=== PATIENT | female | born 1995 | race Caucasian/White ===

== ENCOUNTER 2017-03-02 12:40 | Inpatient (IN) | payer OTHER ==
[~2017-03-02] VITALS: Ht 170.2 cm; Wt 64.0 kg
[2017-03-02] VITALS (17 sets, daily range): BP systolic 101–144; BP diastolic 66–92; PULSE 63–115; TEMP 97.9–98.3
[~2017-03-02 12:40] MED LIST: ALBUTEROL SULFAT3 M3; CEFTIN 250250 MG/TAB PO; RT ADVAIR 128 DISKUS
[2017-03-02 16:18] LABS: BASO % 0.3 % (0.0-2.0); EOS # 0.3 (0.0-0.7); EOS % 3.1 % (0-4.0); GRAN # 7.3 (1.4-6.5); GRAN % 69.5 % (42.2-75.2); HEMOGLOBIN 10.9 g/dl (12.5-16.0); LYMPH % 18.7 % (20.0-51.0); MEAN CELL VOLUME 84 fl (80.0-100.0); MEAN CORPUSCULAR HEMOGLOBIN 27 pg (27.0-31.0); MEAN CORPUSCULAR HGB CONC 32 g/dl (33.0-37.0); MEAN PLATELET VOLUME 12.6 fl (7.4-10.4); MONO # 0.8 (0.1-0.6); MONO % 7.4 % (1.7-9.3); PLATELET COUNT 153 K/mm3 (130-400); RED BLOOD COUNT 4.05 M/mm3 (4.10-5.30); REDCELL DISTRIBUTION WIDTH-CV 12.9 % (11.5-14.5); WHITE BLOOD COUNT 10.5 K/mm3 (4.8-10.8)
[2017-03-03 01:30] VITALS: BP 123/80; PULSE 90
[2017-03-03 05:30] VITALS: BP 111/50; PULSE 89
[2017-03-03 07:00] VITALS: BP 118/71; PULSE 89; TEMP 97.5
[2017-03-03 08:20] LABS: BASO % 0.2 % (0.0-2.0); EOS # 0.2 (0.0-0.7); EOS % 1.7 % (0-4.0); GRAN # 7.1 (1.4-6.5); GRAN % 75.3 % (42.2-75.2); LYMPH # 1.3 (1.2-3.4); LYMPH % 14.2 % (20.0-51.0); MEAN CELL VOLUME 87 fl (80.0-100.0); MEAN CORPUSCULAR HGB CONC 32 g/dl (33.0-37.0); MEAN PLATELET VOLUME 12.3 fl (7.4-10.4); MONO # 0.8 (0.1-0.6); PLATELET COUNT 114 K/mm3 (130-400); RED BLOOD COUNT 3.53 M/mm3 (4.10-5.30); WHITE BLOOD COUNT 9.4 K/mm3 (4.8-10.8)
[2017-03-03 08:26] LABS: HEMATOCRIT 30.6 % (37.0-47.0); HEMOGLOBIN 9.8 g/dl (12.5-16.0); MEAN CORPUSCULAR HEMOGLOBIN 28 pg (27.0-31.0)
[2017-03-03 12:20] VITALS: BP 108/75; PULSE 89; TEMP 98.6
[2017-03-03 16:52] VITALS: BP 120/75; PULSE 99; TEMP 98.1
[2017-03-03 20:45] VITALS: BP 131/83; PULSE 81; TEMP 99.5
[2017-03-04 08:25] VITALS: BP 100/52; PULSE 90; TEMP 98.1
[2017-03-04] MEDS ORDERED: NORCO 325 MG-51 TAB PO (09:19)
[2017-03-04 17:00] VITALS: BP 122/78; PULSE 101; TEMP 98.5
[2017-03-04 22:05] VITALS: BP 119/74; PULSE 89; TEMP 98.8
[2017-03-05 07:15] VITALS: BP 122/83; PULSE 82; TEMP 98
== END 2017-03-05 12:00 | disposition home or self-care (01) | DRG 765 ==
LOC: OB 12:40
PROVIDERS: Obstetrics & Gynecology
PROC: 10D00Z1 Extraction of Products of Conception, Low, Open Approach (ICD-10-PCS; principal; 2017-03-02)
DX: O32.1XX0 Maternal care for breech presentation, not applicable or unspecified (principal); O41.03X0 Oligohydramnios, third trimester, not applicable or unspecified; O36.5930 Maternal care for other known or suspected poor fetal growth, third trimester, not applicable or unspecified; Z3A.37 37 weeks gestation of pregnancy; Z37.0 Single live birth
CPT/HCPCS: J0690; J1885; J2175; J2270; J2370; J2405; J2590; J7120

== ENCOUNTER 2019-01-17 19:24 | Emergency (ER) | payer OTHER ==
[~2019-01-17] VITALS: Ht 167.6 cm; Wt 47.7 kg
[~2019-01-17 19:24] MED LIST changes: +NORCO 325 MG-51 TAB PO
[2019-01-17 19:28] VITALS: TEMP 98.8
[2019-01-17] MEDS ORDERED: SINGULAIR 110 MG/TAB PO (19:30)
[2019-01-17] MEDS ORDERED: RT ADVAIR 228 DISKUS IH (19:30)
[2019-01-17] MEDS ORDERED: LEXAPRO 5MG5 MG PO (19:30)
[2019-01-17 20:08] LABS: COLLECTION METHOD CLEAN CATCH
[2019-01-17 20:12] LABS: BASO % 0.2 % (0.0-2.0); EOS # 0.1 (0.0-0.7); EOS % 0.9 % (0-4.0); GRAN # 6.3 (1.4-6.5); GRAN % 72.5 % (42.2-75.2); HEMATOCRIT 37.4 % (37.0-47.0); HEMOGLOBIN 12.7 g/dl (12.5-16.0); LYMPH # 1.7 (1.2-3.4); LYMPH % 19.1 % (20.0-51.0); MEAN CELL VOLUME 85 fl (80.0-100.0); MEAN CORPUSCULAR HEMOGLOBIN 29 pg (27.0-31.0); MEAN CORPUSCULAR HGB CONC 34 g/dl (33.0-37.0); MEAN PLATELET VOLUME 11.4 fl (7.4-10.4); MONO # 0.6 (0.1-0.6); MONO % 6.8 % (1.7-9.3); PLATELET COUNT 171 K/mm3 (130-400); RED BLOOD COUNT 4.41 M/mm3 (4.10-5.30); REDCELL DISTRIBUTION WIDTH-CV 13.1 % (11.5-14.5)
[2019-01-17 20:15] LABS: MUCOUS Present /lpf; PH 6 (5-8); SQUAMOUS EPITHELIAL 0-2 /hpf; URINE APPEARANCE Clear; URINE BACTERIA None Seen /hpf; URINE BILIRUBIN Negative (NEGATIVE); URINE BLOOD Negative (NEGATIVE); URINE COLOR Yellow; URINE GLUCOSE Negative (NEGATIVE); URINE KETONE 2+ (NEGATIVE); URINE LEUKOCYTE ESTERASE Negative (NEGATIVE); URINE NITRATE Negative (NEGATIVE); URINE PROTEIN(semi-quant) Negative (NEGATIVE); URINE RBC 0-2 /hpf; URINE UROBILINOGEN Negative (NEGATIVE)
[2019-01-17 20:26] LABS: ALBUMIN 4.1 gm/dL (3.5-5.0); BILIRUBIN,TOTAL 0.7 mg/dL (0.0-1.0); CREATININE, serum 0.46 (0.52-1.25); POTASSIUM 3.6 mmol/L (3.4-5.0); TOTAL PROTEIN 7.3 gm/dL (6.4-8.2)
[2019-01-17 22:15] VITALS: BP 100/61; PULSE 80
== END 2019-01-17 22:15 | disposition home or self-care (01) ==
LOC: COL.ER 19:24
PROVIDERS: Physician Assistant
DX: O21.1 Hyperemesis gravidarum with metabolic disturbance (principal); O99.342 Other mental disorders complicating pregnancy, second trimester; F41.9 Anxiety disorder, unspecified; F32.9 Major depressive disorder, single episode, unspecified; Z98.890 Other specified postprocedural states; Z3A.14 14 weeks gestation of pregnancy; Z79.51 Long term (current) use of inhaled steroids
CPT/HCPCS: J1200; J2765; J7030

== ENCOUNTER 2019-07-12 20:40 | Outpatient (CLI) | payer OTHER ==
[~2019-07-12] VITALS: Ht 170.2 cm; Wt 69.5 kg
[~2019-07-12 20:40] MED LIST changes: +LEXAPRO 5MG5 MG PO; +RT ADVAIR 228 DISKUS IH; +SINGULAIR 110 MG/TAB PO
--- NOTE | 2019-07-12 20:50 | NUR ---
Here for labor check. . Wishes to . Livia for 1 hour. Membranes stripped in office today pt states.EFM on
[2019-07-12 21:00] VITALS: BP 130/79; PULSE 116; TEMP 98.2
[2019-07-12 21:14] VITALS: BP 130/79; PULSE 116; TEMP 98.2
[2019-07-12 21:20] VITALS: BP 130/79; PULSE 116; TEMP 98.2
[2019-07-12 22:17] VITALS: BP 130/80; PULSE 90; TEMP 98.2
== END 2019-07-12 22:40 | disposition home or self-care (01) ==
LOC: LDRO 20:40 → LDR 20:50 → LDRO 22:40
DX: Z34.93 Encounter for supervision of normal pregnancy, unspecified, third trimester (principal); Z3A.39 39 weeks gestation of pregnancy
CPT/HCPCS: OP

== ENCOUNTER 2019-07-13 03:09 | Inpatient (IN) | payer OTHER ==
[2019-07-13] VITALS (53 sets, daily range): BP systolic 90–143; BP diastolic 51–90; PULSE 93–126; TEMP 98.1–98.8
[~2019-07-13] VITALS: Ht 170.2 cm; Wt 69.5 kg
--- NOTE | 2019-07-13 03:15 | NUR ---
Here after discharge for labor check earlier last nite. continues having stronger ctxs. 2/80/-2. every 3-5 min.
[2019-07-13 06:15] LABS: BASO % 0.1 % (0.0-2.0); EOS # 0.1 (0.0-0.7); EOS % 0.8 % (0-4.0); GRAN # 12.4 (1.4-6.5); GRAN % 80.9 % (42.2-75.2); LYMPH # 1.6 (1.2-3.4); LYMPH % 10.5 % (20.0-51.0); MEAN CELL VOLUME 78 fl (80.0-100.0); MEAN CORPUSCULAR HGB CONC 31 g/dl (33.0-37.0); MEAN PLATELET VOLUME 13.2 fl (7.4-10.4); MONO # 1.1 (0.1-0.6); MONO % 6.9 % (1.7-9.3); PLATELET COUNT 160 K/mm3 (130-400); RED BLOOD COUNT 3.84 M/mm3 (4.10-5.30); REDCELL DISTRIBUTION WIDTH-CV 13.7 % (11.5-14.5)
--- NOTE | 2019-07-13 06:20 | NUR ---
Report received, care assumed. Patient uncomfortable and breathing through contractions, ASSOCI[employer] on the way for epidural.
[2019-07-13 06:22] LABS: HEMOGLOBIN 9.4 g/dl (12.5-16.0); MEAN CORPUSCULAR HEMOGLOBIN 24 pg (27.0-31.0)
--- NOTE | 2019-07-13 06:39 | NUR ---
Jessica COLLINS CALLED FOR EPIDURAL
--- NOTE | 2019-07-13 06:49 | NUR ---
0640 EDIN Cristobal to room to place epidural. Patient sits upright on the edge of the bed. 0649 Test dose administered by EDIN Cristobal. See anesthesia record for details.
--- NOTE | 2019-07-13 08:30 | NUR ---
Dr. Hernandez at bedside, reviews FHR tracing, SVE with AROM, 4/80/-2 with moderate amount of clear fluid noted.
--- NOTE | 2019-07-13 17:12 | NUR ---
1652 Dr. Heranndez to patient room, SVE - complete +3, patient prepped for delivery. 1700 Patient begins to push with contractions. Pushing well. 1712 Spontaneous vaginal delivery of viable female by Dr. Hernandez, cord clamped and cut and infant to the care of the nursery RN. 1715 Spontaneous delivery of placenta, pitocin infusing at 333ml/hr per orders and protocol, fundus firm, lochia WNL, repair of 2nd degree perineal laceration and right labial laceration by Dr. Hernandez.
[2019-07-14] VITALS: BP 115/73; PULSE 100; TEMP 98.5
[2019-07-14 04:00] VITALS: BP 95/55; PULSE 76; TEMP 97.9
[2019-07-14 09:00] VITALS: BP 107/70; PULSE 95; TEMP 97.6
--- NOTE | 2019-07-14 09:57 | NUR ---
Initial visit; Mom thanked [employer] Professional for offering congratulations and God's blessings for the of her daughter. [employer] Professional thanked family for choosing [facility].
[2019-07-14 11:33] LABS: HEMATOCRIT 29.1 % (37.0-47.0); HEMOGLOBIN 8.9 g/dl (12.5-16.0)
[2019-07-14 12:36] VITALS: BP 114/63; PULSE 75; TEMP 97.5
[2019-07-14 17:08] VITALS: BP 110/65; PULSE 86; TEMP 97.5
[2019-07-14 20:45] VITALS: BP 108/67; PULSE 98; TEMP 97.9
[2019-07-15 08:16] VITALS: BP 120/69; PULSE 102; TEMP 97.6
[2019-07-15] MEDS ORDERED: MOTRIN 800800 MG/TAB PO (11:06)
[2019-07-15] MEDS ORDERED: NORCO 325 MG-51 TAB PO (11:07)
== END 2019-07-15 12:05 | disposition home or self-care (01) | DRG 807 ==
LOC: LDRO 03:09 → OB 05:30 → LDR 05:30 → OB 21:00
PROVIDERS: Obstetrics & Gynecology; ADMIT Obstetrics & Gynecology
PROC: 10E0XZZ Delivery of Products of Conception, External Approach (ICD-10-PCS; principal; 2019-07-13)
PROC: 0KQM0ZZ Repair Perineum Muscle, Open Approach (ICD-10-PCS; 2019-07-13)
PROC: 0UQMXZZ Repair Vulva, External Approach (ICD-10-PCS; 2019-07-13)
DX: O34.211 Maternal care for low transverse scar from previous cesarean delivery (principal); Z37.0 Single live birth; O99.52 Diseases of the respiratory system complicating childbirth; O99.02 Anemia complicating childbirth; O99.344 Other mental disorders complicating childbirth; O70.1 Second degree perineal laceration during delivery; Z3A.39 39 weeks gestation of pregnancy; F32.9 Major depressive disorder, single episode, unspecified; D64.9 Anemia, unspecified; J45.909 Unspecified asthma, uncomplicated; F41.9 Anxiety disorder, unspecified
CPT/HCPCS: J2405; J2590; J7120

== ENCOUNTER 2021-08-12 21:11 | Emergency (ER) | payer OTHER ==
[~2021-08-12] VITALS: Ht 170.2 cm; Wt 59.1 kg
[~2021-08-12 21:11] MED LIST changes: +MOTRIN 800800 MG/TAB PO
[2021-08-12 21:17] VITALS: TEMP 97.4
[2021-08-12 22:09] VITALS: BP 127/80; PULSE 77
== END 2021-08-12 22:22 | disposition home or self-care (01) ==
LOC: COL.ER 21:11
DX: J95.830 Postprocedural hemorrhage of a respiratory system organ or structure following a respiratory system procedure (principal)